=== PATIENT | female | born 1965 | race African-American/Black ===

== ENCOUNTER 2020-04-23 11:26 | Emergency (ER) | payer MEDICARE, OTHER ==
[~2020-04-23] VITALS: Ht 165.1 cm; Wt 90.1 kg
--- NOTE | 2020-04-23 12:00 | NUR ---
assumed care of pt. pt here for pain/swelling to R 3rd 4th and 5th toes after stubbing her toes a few days ago. pt is ambulatory and has no open wounds. CMS of R foot intact Amber TRUJILLO has been to bedside for eval warm blankets given for comfort
--- NOTE | 2020-04-23 12:09 | NUR ---
ice pack has been offered, pt declines at this time
--- NOTE | 2020-04-23 12:21 | NUR ---
x-ray has been to bedside
--- NOTE | 2020-04-23 12:24 | NUR ---
report to Aubrey AGUIRRE for lunch
[2020-04-23 13:11] VITALS: BP 122/92
--- NOTE | 2020-04-23 13:45 | NUR ---
ICE GRINDER: PER [facility], THEY ARE OUR [facility] [facility]
--- NOTE | 2020-04-23 14:50 | NUR ---
CMS INTACT POST SPLINT APPLICATION. PATIENT SAFELY DEMONSTRATED SAFE USE OF CRUTCHES. REVIEWED F/U UP DATA. TEACH BACK SUCCESSFUL
== END 2020-04-23 14:52 | disposition home or self-care (01) ==
LOC: ED 12:41
DX: S92.511A Displaced fracture of proximal phalanx of right lesser toe(s), initial encounter for closed fracture (principal); J45.909 Unspecified asthma, uncomplicated; W22.8XXA Striking against or struck by other objects, initial encounter; Y93.89 Activity, other specified; Y92.009 Unspecified place in unspecified non-institutional (private) residence as the place of occurrence of the external cause; Y99.8 Other external cause status
CPT/HCPCS: 29515; 99283